=== PATIENT | male | born 1975 | race Caucasian/White ===

== ENCOUNTER 2020-03-17 16:46 | Emergency (ER) | payer OTHER ==
[~2020-03-17] VITALS: Ht 167.6 cm; Wt 113.4 kg
[~2020-03-17 16:46] MED LIST: HYDR25TA32 PO
[2020-03-17 16:54] VITALS: BP 199/129
--- NOTE | 2020-03-17 17:06 | NUR ---
PT AMB TO BED 12.
--- NOTE | 2020-03-17 17:07 | NUR ---
DR. KHALIL EVALUATING PT AT BEDSIDE
--- NOTE | 2020-03-17 17:08 | NUR ---
[facility] in [facility] - 03/17/20 at 1708 by [email or web address] Patient being evaluated by DR RAGLAND at bedside.
--- NOTE | 2020-03-17 17:15 | NUR ---
45/M PRESENTS FOR MED REFILL. RAN OUT OF MEDS 3 DAYS. C/O HEADACHE X 2 DAYS. DID NOT TAKE MEDS/OUT OF MEDS FOR 3 DAYS. BLOOD SUGAR 157, BP 199/127 AT THIS TIME. NO DIZZINESS, VISUAL CHANGES, CP, SOB. APPEARS NAD. MED HX: DM, HTN
--- NOTE | 2020-03-17 17:20 | NUR ---
DR. KHALIL AWARE OF ELEVATED BP AND C/O HEADACHE. NO FURTHER ORDERS/TREATMENT AT THIS TIME.
[2020-03-17 18:09] VITALS: BP 157/95
--- NOTE | 2020-03-17 18:09 | NUR ---
Patient discharged with v/s stable. Written and verbal after care instructions given and explained. Patient alert, oriented and verbalized understanding of instructions. Ambulatory with steady gait. All questions addressed prior to discharge. ID band removed. Patient advised to follow up with PMD. Rx of LISINOPRIL, BUPRENOPRIL, ULTICARE SHORT NEDDLE, NIFEDIPINE, 1 TRACT SMART SYSTEM BLOOD GLUCOSE MONITOR KIT, HYDROXYZINE HCL, NOVOLIN N, LEVEMIR, HUMALOG &TRAZODONE HCL given. Patient educated on indication of medication including possible reaction and side effects. Opportunity to ask questions provided and answered.
== END 2020-03-17 18:09 | disposition home or self-care (01) ==
LOC: MED 16:46
DX: E11.9 Type 2 diabetes mellitus without complications (principal); I10 Essential (primary) hypertension; Z71.6 Tobacco abuse counseling; Z79.899 Other long term (current) drug therapy
CPT/HCPCS: 82948; 99281; 99282